=== PATIENT | female | born 2000 | race Caucasian/White ===

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

== ENCOUNTER 2021-06-25 21:46 | Emergency (ER) | payer MEDICAID ==
[~2021-06-25] VITALS: Ht 154.9 cm; Wt 61.2 kg
[~2021-06-25 21:46] MED LIST changes: +IBUP-1955 PO
[2021-06-25] MEDS ORDERED: ONDANSETRON 4 MG TAB.RAPDIS ONE (22:20)
[2021-06-25] MEDS ORDERED: ONDANSETRON 4 MG TAB.RAPDIS SL ONE (22:30)
[2021-06-25] MEDS ORDERED: ONDA4TAB11 PO (23:14)
[2021-06-25 23:45] VITALS: BP 117/58
--- NOTE | 2021-06-25 23:45 | NUR ---
Patient discharged to home in stable condition. Written and verbal after care instructions given. Patient verbalizes understanding of instruction.
== END 2021-06-25 23:45 ==
LOC: ER 21:48
DX: R11.0 Nausea (principal); Z79.899 Other long term (current) drug therapy
CPT/HCPCS: 84703; 99283; Q0162

== ENCOUNTER 2021-11-27 15:31 | Emergency (ER) | payer MEDICAID ==
[~2021-11-27] VITALS: Ht 154.9 cm; Wt 61.2 kg
[~2021-11-27 15:31] MED LIST changes: +ONDA4TAB11 PO
--- NOTE | 2021-11-27 16:01 | NUR ---
DR PICKETT AT BEDSIDE
[2021-11-27] MEDS ORDERED: METHOCARBAMOL (500MG) 500 MG TABLET ONE (16:13)
[2021-11-27] MEDS ORDERED: IBUPROFEN 600 MG TABLET ONE (16:13)
--- NOTE | 2021-11-27 16:17 | NUR ---
SIGNED WAIVER FORM. LMP MAR 2021 "I HAVE IUD SINCE MAR 2021 AND EVERSINCE I HAVEN'T HAD ANY PERIOD". TO ER BED 4. HOOKED TO MONITOR, CHANGED TO HOSP GOWN, WARM BLANKET PROVIDED. DR PICKETT AT BEDSIDE
--- NOTE | 2021-11-27 16:19 | NUR ---
BROUGHT TO CT SCAN BY [employer] INST[employer]ER SUPERVISOR
[2021-11-27] MEDS ORDERED: METHOCARBAMOL (500MG) 500 MG TABLET PO ONE (16:30)
[2021-11-27] MEDS ORDERED: IBUPROFEN 600 MG TABLET PO ONE (16:30)
[2021-11-27] MEDS ORDERED: IBUP-1957 PO (17:12)
[2021-11-27] MEDS ORDERED: METH-647 PO (17:12)
--- NOTE | 2021-11-27 17:20 | NUR ---
Patient discharged to home in stable condition. Written and verbal after care instructions given. Patient verbalizes understanding of instruction.
[2021-11-27 17:25] VITALS: BP 122/67
== END 2021-11-27 17:26 | disposition home or self-care (01) ==
LOC: ER 15:35
DX: S39.012A Strain of muscle, fascia and tendon of lower back, initial encounter (principal); Z79.1 Long term (current) use of non-steroidal anti-inflammatories (NSAID); Z79.899 Other long term (current) drug therapy; X50.0XXA Overexertion from strenuous movement or load, initial encounter; Y93.89 Activity, other specified; Y92.89 Other specified places as the place of occurrence of the external cause; Y99.8 Other external cause status
CPT/HCPCS: 72131-TC

== ENCOUNTER 2022-12-11 15:55 | Emergency (ER) | payer MEDICAID ==
[~2022-12-11] VITALS: Ht 157.5 cm; Wt 51.3 kg
[~2022-12-11 15:55] MED LIST changes: +IBUP-1957 PO; +METH-647 PO
--- NOTE | 2022-12-11 16:11 | NUR ---
pt cc reddish stool ptc. no other symptoms noted.
[2022-12-11 16:23] VITALS: BP 112/76
== END 2022-12-11 16:23 | disposition home or self-care (01) ==
LOC: ER 15:59
DX: K64.8 Other hemorrhoids (principal); K62.5 Hemorrhage of anus and rectum; Z79.899 Other long term (current) drug therapy

== ENCOUNTER 2023-07-15 00:16 | Emergency (ER) | payer MEDICAID ==
[~2023-07-15] VITALS: Ht 154.9 cm; Wt 52.2 kg
[2023-07-15] MEDS ORDERED: IBUP-1953 PO (01:56)
[2023-07-15 01:59] VITALS: BP 121/65; TEMP 97.8; O2SAT 99
== END 2023-07-15 02:00 | disposition home or self-care (01) ==
LOC: ER 00:19
DX: S76.111A Strain of right quadriceps muscle, fascia and tendon, initial encounter (principal); X58.XXXA Exposure to other specified factors, initial encounter; Y93.89 Activity, other specified; Y92.89 Other specified places as the place of occurrence of the external cause; Y99.8 Other external cause status

== ENCOUNTER 2024-07-02 10:10 | Emergency (ER) | payer MEDICAID ==
[~2024-07-02] VITALS: Ht 152.4 cm; Wt 53.1 kg
[~2024-07-02 10:10] MED LIST changes: +IBUP-1953 PO
[2024-07-02 10:40] VITALS: BP 105/72; TEMP 98.2
[2024-07-02 11:37] VITALS: O2SAT 98
== END 2024-07-02 11:38 | disposition home or self-care (01) ==
LOC: ER 10:17
DX: J06.9 Acute upper respiratory infection, unspecified (principal); Z79.1 Long term (current) use of non-steroidal anti-inflammatories (NSAID)